=== PATIENT | female | born 1935 | race African-American/Black ===

== ENCOUNTER 2022-12-03 17:35 | Emergency (ER) | payer BC ==
[~2022-12-03] VITALS: Ht 162.6 cm; Wt 68.0 kg
[2022-12-03 17:49] VITALS: BP_SYST 148
--- NOTE | 2022-12-03 18:00 | NUR ---
ASSUMED PATIENT CARE PT AOX4 GCS 15 PATIENT ABMULATED INTO ER WITH C/O MECHANICAL FALL. 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 PATIENT RECALLS EVNET NEG LOC ON ASPIRIN 81MG DAILY.
[2022-12-03] MEDS ORDERED: ACETAMINOPHEN 325 MG TABLET PO ONE (18:15)
--- NOTE | 2022-12-03 18:15 | NUR ---
PATIENT TRANSPORTED TO CT
[2022-12-03 18:23] VITALS: BP_SYST 146
[2022-12-03] MEDS ORDERED: ACET-2634 PO (19:15)
[2022-12-03] MEDS ORDERED: LIDO700A30 TP (19:15)
[2022-12-03] MEDS ORDERED: LIDOCAINE PATCH 5% 1 EA TP ONE (19:15)
== END 2022-12-03 20:45 | disposition home or self-care (01) ==
LOC: SED 17:35
DX: S22.080A Wedge compression fracture of T11-T12 vertebra, initial encounter for closed fracture (principal); S00.03XA Contusion of scalp, initial encounter; Z79.899 Other long term (current) drug therapy; W01.0XXA Fall on same level from slipping, tripping and stumbling without subsequent striking against object, initial encounter; Y93.89 Activity, other specified; Y92.89 Other specified places as the place of occurrence of the external cause; Y99.8 Other external cause status
CPT/HCPCS: 70450-TC; 72125-TC; 72131; 76376; 99284